=== PATIENT | female | born 1940 | race Caucasian/White ===

== ENCOUNTER 2017-10-07 08:48 | Day surgery (SDC) | payer MEDICARE, OTHER ==
[~2017-10-07] VITALS: Ht 165.1 cm; Wt 78.9 kg
[~2017-10-07 08:48] MED LIST: ESOM20 PO; HYDACE5 PO; OMEP20ER PO; TOLT2ER PO
[2017-10-07] MEDS ORDERED: OMEPRAZOLE MAGN20 MG PO (09:32)
[2017-11-18] MEDS ORDERED: FURO20 (08:54)
[2017-11-18] MEDS ORDERED: HYDR1TAB94 (08:55)
== END 2017-10-07 14:16 | disposition home or self-care (01) ==
LOC: ORSCSDS 08:48
PROVIDERS: Student in an Organized Health Care Education/Training Program
PROC: 0SGQ0ZZ (ICD-10-PCS; principal; 2017-10-07 10:30)
PROC: 0HDRXZZ Extraction of Toe Nail, External Approach (ICD-10-PCS; principal; 2017-10-07 10:30)
PROC: 0SRQ0JZ Replacement of Left Toe Phalangeal Joint with Synthetic Substitute, Open Approach (ICD-10-PCS; principal; 2017-10-07 10:30)
PROC: 0QSP04Z Reposition Left Metatarsal with Internal Fixation Device, Open Approach (ICD-10-PCS; principal; 2017-10-07 10:30)
DX: M20.42 Other hammer toe(s) (acquired), left foot (principal); M20.22 Hallux rigidus, left foot; M20.10 Hallux valgus (acquired), unspecified foot; B35.1 Tinea unguium; L60.3 Nail dystrophy; K21.9 Gastro-esophageal reflux disease without esophagitis; Z79.899 Other long term (current) drug therapy
CPT/HCPCS: J1100; J2250; J2405; J3010; J7120

== ENCOUNTER 2017-11-24 08:29 | Day surgery (SDC) | payer MEDICARE, OTHER ==
[~2017-11-24] VITALS: Ht 165.1 cm; Wt 83.3 kg
[~2017-11-24 08:29] MED LIST changes: +FURO20; +HYDR1TAB94; +OMEPRAZOLE MAGN20 MG PO
[2017-11-24] MEDS ORDERED: VIVLODEX10 MG PO (09:19)
== END 2017-11-24 10:55 | disposition home or self-care (01) ==
LOC: ORSCSDS 08:29
PROVIDERS: Internal Medicine Gastroenterology
PROC: 0DB68ZX Excision of Stomach, Via Natural or Artificial Opening Endoscopic, Diagnostic (ICD-10-PCS; principal; 2017-11-24 10:00)
PROC: 0D758ZZ Dilation of Esophagus, Via Natural or Artificial Opening Endoscopic (ICD-10-PCS; principal; 2017-11-24 10:00)
DX: R13.10 Dysphagia, unspecified (principal); K29.70 Gastritis, unspecified, without bleeding; K21.9 Gastro-esophageal reflux disease without esophagitis; Z98.84 Bariatric surgery status; Z79.82 Long term (current) use of aspirin; Z79.899 Other long term (current) drug therapy
CPT/HCPCS: 88305; 88342; J7120

== ENCOUNTER 2020-11-21 08:10 | Day surgery (SDC) | payer MEDICARE, OTHER ==
[~2020-11-21] VITALS: Ht 165.1 cm; Wt 66.2 kg
[~2020-11-21 08:10] MED LIST changes: +VIVLODEX10 MG PO
== END 2020-11-21 10:01 | disposition home or self-care (01) ==
LOC: ORSCSDS 08:10
PROVIDERS: Student in an Organized Health Care Education/Training Program
PROC: 0D778ZZ Dilation of Stomach, Pylorus, Via Natural or Artificial Opening Endoscopic (ICD-10-PCS; principal; 2020-11-21 09:30)
PROC: 0DB68ZX Excision of Stomach, Via Natural or Artificial Opening Endoscopic, Diagnostic (ICD-10-PCS; principal; 2020-11-21 09:30)
DX: R13.10 Dysphagia, unspecified (principal); K21.9 Gastro-esophageal reflux disease without esophagitis; I10 Essential (primary) hypertension; Z98.84 Bariatric surgery status; Z79.82 Long term (current) use of aspirin; Z79.899 Other long term (current) drug therapy
CPT/HCPCS: 88305; 88342; C1726; J0330; J0461; J2405; J2704; J7120